=== PATIENT | female | born 1940 | race Two or more races ===

== ENCOUNTER 2020-04-25 06:35 | Day surgery (SDC) | payer OTHER ==
[~2020-04-25 06:35] MED LIST: ACID REDUCER20 M1 PO; CALTRATE 600 W-1 TAB PO; CALTRATE 600+D1 EAC1 PO; ESCITALOPRAM PO; GLUCOSAM PO; INTEGRA PLUS C1 EACH PO; LORAZEPAM PO; PEPCID AC20 MG PO; POLY119PG PO; SYNTH PO; [UNRECOGNIZED DRUG - OTHER] PO
== END 2020-04-25 11:05 | disposition home or self-care (01) ==
LOC: CIR.AMB 06:35
PROVIDERS: ATTEND Surgery Surgery of the Hand
DX: M65.842 Other synovitis and tenosynovitis, left hand (principal); Z20.828 Contact with and (suspected) exposure to other viral communicable diseases